=== PATIENT | male | born 1985 | race Caucasian/White ===

== ENCOUNTER 2016-04-01 16:04 | Emergency (ER) | payer MEDICAID, OTHER ==
[~2016-04-01] VITALS: Ht 177.8 cm; Wt 110.6 kg
[~2016-04-01 16:04] MED LIST: CYMB30CA PO; CYMB60CA PO; DEPA500T3 PO; EZET10 PO; FENO1TAB76 PO; FURO20 PO; IBUP800T23 PO; LOPR50TA12 PO; METH500T3 PO; METH750T2 PO; POTA10IN2 PO; TAMS0.4C67 PO
[2016-04-01 16:11] VITALS: BP 140/94; PULSE 92; RESP 16; TEMP 98.8; O2SAT 98
[2016-04-01] MEDS ORDERED: POTA-163 PO (16:33)
[2016-04-01] MEDS ORDERED: SERT-132 PO (16:33)
[2016-04-01] MEDS ORDERED: DOXE25CA2 PO (16:33)
[2016-04-01] MEDS ORDERED: METO50TA11 PO (16:33)
[2016-04-01] MEDS ORDERED: FURO1TAB60 PO (16:33)
[2016-04-01] MEDS ORDERED: TAMS5CAP PO (16:33)
[2016-04-01] MEDS ORDERED: BUPR150CR PO (16:33)
[2016-04-01] MEDS ORDERED: BACT800T5 PO (16:52)
--- NOTE | 2016-04-01 16:54 | PD ---
HPI Chief Complaint: Skin Problem Time Seen by Provider: 16:53 Travel History International Travel<30 days: No Contact w/Intl Traveler<30days: No Traveled to known affect area: No History of Present Illness HPI 31-year-old male presents to the emergency room for evaluation of painful, red bumps on his head that has been intermittently present for the past 3 months. Patient states they come and go throughout his scalp and occasionally drain purulent discharge. When they're present, they're extremely painful. Patient has been applying hydrogen peroxide and Neosporin without relief in symptoms. He has not followed up with anyone about this condition. Denies fever, chills, nausea, and vomiting. PFSH Past Medical History Anxiety: Yes Depression: Yes Cancer: No Cardiovascular Problems: Yes (htn on meds) Chemotherapy: No Diminished Hearing: No Endocrine: No Genitourinary: No Hypertension: Yes Immune Disorder: No Musculoskeletal: No Neurologic: No Psychiatric: Yes (PTSD) Reproductive: No Respiratory: No Immunizations Current: Yes Radiation Therapy: No Past Surgical History Abdominal Surgery: Yes (HERNIA) Pacemaker: No Other Surgery: Yes (RT INGUINAL HERNIA REPAIR) Social History Alcohol Use: Yes (OCC) Tobacco Use: Yes (2 PPD) Substance Use: No Allergies-Medications (Allergen,Severity, Reaction): Coded Allergies: No Known Allergies (Verified , 04/01/16) Reported Meds & Prescriptions Reported Meds & Active Scripts Active Bactrim DS (Sulfamethoxazole-Trimethoprim) 800-160 Mg Tab 1 Tab PO BID Reported Doxepin (Doxepin HCl) 25 Mg Cap 25 Mg PO HS Flomax (Tamsulosin HCl) 0.4 Mg Cap 0.4 Mg PO HS Potassium Chloride ER (Potassium Chloride) 20 Meq Tab 40 Meq PO DAILY Lasix (Furosemide) 40 Mg Tab 40 Mg PO DAILY Sertraline (Sertraline HCl) 50 Mg Tab 50 Mg PO DAILY Wellbutrin SR 12 HR (Bupropion HCl) 150 Mg Tab 150 Mg PO Q12HR Metoprolol Succinate ER 24 HR (Metoprolol Succinate) 50 Mg Tab 50 Mg PO BID Review of Systems Except as stated in HPI: all other systems reviewed are Neg Physical Exam Narrative GENERAL: Well-nourished, well-developed male in no acute distress. Afebrile. Ambulatory. SKIN: Warm and dry. There are 2 indurated areas in the scalp which measure about 0.5 cm in diameter. They are fluctuant with pointing; one is spontaneously draining. No inflammation or lymphangitis. HEAD: Normocephalic. EYES: No scleral icterus. No injection or drainage. NECK: Supple, trachea midline. No JVD or lymphadenopathy. Data Data Last Documented VS Vital Signs Date Time Temp Pulse Resp B/P Pulse Ox O2 Delivery O2 Flow Rate FiO2 04/01/16 16:11 98.8 92 16 140/94 98 Orders Ibuprofen (Motrin) (04/01/16 17:00) [facility] Medical Decision Making Medical Screen Exam Complete: Yes Emergency Medical Condition: Yes Medical Record Reviewed: Yes Differential Diagnosis Folliculitis versus abscess versus carbuncle Narrative Course 31-year-old male presents to the emergency room for evaluation of painful abscesses on his scalp that have been present intermittently for the past 3 months. Abscesses, and go in different locations of the scalp. Denies history of abscess in any other part of his body. Patient has not seen anyone for this. Physical exam reveals 2 0.5 cm abscesses on the top of the scalp. They were poked with an 18-gauge needle and drained. 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 He understands and agrees to this plan. Diagnosis Primary Impression: Folliculitis Referrals: Systems Administrator Patient Instructions: Folliculitis (ED), General Instructions Additional Instructions: Rest and drink plenty of fluids. Take Bactrim as directed, until gone. Follow up with a primary care physician. Return to emergency room for worsening symptoms, as discussed. Med/Other Pt SpecificInfo: Prescription(s) given Scripts Sulfamethoxazole-Trimethoprim (Bactrim DS)800-160 Mg Tab1 Tab PO BID #14 TAB Ref 0 Prov:Toyin Sparrow MD 04/01/16 Disposition: 01 DISCHARGE HOME Condition: Stable Izabella Chand Apr 01, 2016 16:54
[2016-04-01] MEDS ORDERED: IBUPROFEN 600 MG TAB PO ONE (17:00)
== END 2016-04-01 17:08 | disposition home or self-care (01) ==
LOC: PHEFT 16:04
DX: L73.9 Follicular disorder, unspecified (principal); I10 Essential (primary) hypertension
CPT/HCPCS: 99283

== ENCOUNTER 2016-09-04 13:32 | Emergency (ER) | payer MEDICAID, OTHER ==
[~2016-09-04 13:32] MED LIST changes: +BACT800T5 PO; +BUPR150CR PO; -CYMB30CA PO; -CYMB60CA PO; -DEPA500T3 PO; +DOXE25CA2 PO; -EZET10 PO; -FENO1TAB76 PO; +FURO1TAB60 PO; -FURO20 PO; -IBUP800T23 PO; -LOPR50TA12 PO; -METH500T3 PO; -METH750T2 PO; +METO50TA11 PO; +POTA-163 PO; -POTA10IN2 PO; +SERT-132 PO; -TAMS0.4C67 PO; +TAMS5CAP PO
[2016-09-04 13:34] VITALS: BP 140/88; PULSE 98; RESP 20; TEMP 97.7; O2SAT 98
[2016-09-04] MEDS ORDERED: TETANUS/DIPHTHERIA TOXOID ADULT 0.5 ML VIAL IM ONE (14:00)
[2016-09-04] MEDS ORDERED: IBUP800T23 PO (14:06)
--- NOTE | 2016-09-04 14:07 | PD ---
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 Denies paresthesias, loss of sensation, decreased range of motion, decreased strength to the affected finger. Unknown tetanus status. Has applied pressure to control bleeding. Has no other medical complaints. No known allergies. No other modifying factors or associated signs and symptoms. PFSH Past Medical History Anxiety: Yes Depression: Yes Cancer: No Cardiovascular Problems: Yes (htn on meds) Chemotherapy: No Diminished Hearing: No Endocrine: No Genitourinary: No Hypertension: Yes Immune Disorder: No Musculoskeletal: No Neurologic: No Psychiatric: Yes (PTSD) Reproductive: No Respiratory: No Immunizations Current: Yes Radiation Therapy: No Past Surgical History Abdominal Surgery: Yes (HERNIA) Pacemaker: No Other Surgery: Yes (RT INGUINAL HERNIA REPAIR) Social History Alcohol Use: Yes (OCC) Tobacco Use: Yes (/2 PPD) Substance Use: No Allergies-Medications (Allergen,Severity, Reaction): Coded Allergies: No Known Allergies (Verified , 04/01/16) Reported Meds & Prescriptions Reported Meds & Active Scripts Active Ibuprofen 800 Mg Tab 800 Mg PO Q6HR PRN Bactrim DS (Sulfamethoxazole-Trimethoprim) 800-160 Mg Tab 1 Tab PO BID Reported Doxepin (Doxepin HCl) 25 Mg Cap 25 Mg PO HS Flomax (Tamsulosin HCl) 0.4 Mg Cap 0.4 Mg PO HS Potassium Chloride ER (Potassium Chloride) 20 Meq Tab 40 Meq PO DAILY Lasix (Furosemide) 40 Mg Tab 40 Mg PO DAILY Sertraline (Sertraline HCl) 50 Mg Tab 50 Mg PO DAILY Wellbutrin SR 12 HR (Bupropion HCl) 150 Mg Tab 150 Mg PO Q12HR Metoprolol Succinate ER 24 HR (Metoprolol Succinate) 50 Mg Tab 50 Mg PO BID Review of Systems Except as stated in HPI: all other systems reviewed are Neg Physical Exam Narrative GENERAL: Well-nourished, well-developed male patient, in no acute distress SKIN: Warm and dry. Left distal thumb pad with approximately 1.5 cm horseshoe- shaped laceration; bleeding controlled; finger with full range of motion and good opposition; is 3 second cap refill. Left upper extremity supplemented with 2+ radial pulses and sensory intact without erythema or edema. HEAD: Atraumatic. Normocephalic. EYES: Pupils equal and round. No scleral icterus. No injection or drainage. ENT: Mucosa pink and moist. Airway patent. NECK: Trachea midline. CARDIOVASCULAR: Regular rate. RESPIRATORY: No accessory muscle use. GASTROINTESTINAL: Obese. MUSCULOSKELETAL: No obvious deformities. No clubbing. No cyanosis. No edema. NEUROLOGICAL: Awake and alert. Oriented 3. No obvious cranial nerve deficits. Motor grossly within normal limits. Normal speech. PSYCHIATRIC: Appropriate mood and affect; insight and judgment normal. Data Data Last Documented VS Vital Signs Date Time Temp Pulse Resp B/P Pulse Ox O2 Delivery O2 Flow Rate FiO2 09/04/16 13:34 97.7 98 20 140/88 98 Room Air Orders Tetanus/Diphtheria Tox Adult (Tetanus/Di (09/04/16 14:00) MDM Medical Decision Making Medical Screen Exam Complete: Yes Emergency Medical Condition: Yes Medical Record Reviewed: Yes Differential Diagnosis Laceration, skin avulsion, cut Narrative Course 31-year-old male with laceration to his left thumb. See my procedure note for laceration repair. Tetanus updated in the ER. Ibuprofen prescribed for home. Patient verbalizes understanding and agreement with treatment plan. Patient is medically cleared and stable for discharge. Discussed reasons to return to the emergency department. Instructed patient to follow up with primary care provider. Patient agrees with treatment plan. The patients vital signs are stable and the patient is stable for outpatient follow-up and treatment. Patient discharged home, stable and in no acute distress. Procedures Procedure Narrative LACERATION LOCATION: Distal aspect of left thumb pad LENGTH: 1.5 cm; horseshoe-shaped NUMBER OF STITCHES/TOVA: 3 simple interrupted sutures REPAIR: The area of the laceration was prepped with Betadine and sterilely draped. The left thumb was digitally blocked with 1% lidocaine and 0.5% bupivacaine. The wound was copiously irrigated and explored without evidence of foreign body, tendon injury or neurovascular injury. The wound was closed using 4-0 Prolene. This was a single layer repair. A sterile dressing was applied. The patient was advised to keep the dressing clean and dry. Patient tolerated the procedure well. Diagnosis Primary Impression: Laceration of left thumb Qualified Code: S61.012A - Laceration of left thumb without damage to nail, foreign body presence unspecified, initial encounter Referrals: Primary Care Physician Patient Instructions: Care For Your Stitches (ED), Finger Laceration (ED), General Instructions Departure Forms: Tests/Procedures, Work Release Enter return to work date: Sep 07, 2016 Additional Instructions: Keep area clean and dry Limit left thumb activity to decrease risk of sutures coming undone Ibuprofen or Tylenol as directed and as needed for pain and inflammation Ice pack to area as needed to decrease pain Return to the emergency department or follow-up with primary care provider in 7- 10 days for suture removal Follow up with primary care provider Return to the emergency department immediately with worsening of symptoms, particularly if reddened streaks up or down the affected extremity from the suture site, fever, numbness/tingling in the affected extremity, loss of sensation in the affected extremity, severe swelling of the affected Med/Other Pt SpecificInfo: Prescription(s) given Scripts Ibuprofen 800 Mg [id number] Mg PO Q6HR PRN (PAIN) #30 TAB Ref 0 Prov:Teri Anthony 09/04/16 Disposition: 01 DISCHARGE HOME Condition: Stable Teri Anthony Sep 04, 2016 14:07
[2016-09-04 14:26] VITALS: BP 118/76; TEMP 97.8
== END 2016-09-04 14:26 | disposition home or self-care (01) ==
LOC: NEPK 13:32
DX: S61.012A Laceration without foreign body of left thumb without damage to nail, initial encounter (principal); I10 Essential (primary) hypertension; F17.210 Nicotine dependence, cigarettes, uncomplicated; Z23 Encounter for immunization; W26.0XXA Contact with knife, initial encounter; Y93.G3 Activity, cooking and baking; Y92.511 Restaurant or cafe as the place of occurrence of the external cause; Y99.0 Civilian activity done for income or pay
CPT/HCPCS: 12001; 90471; 90714

== ENCOUNTER 2016-09-11 18:18 | Emergency (ER) | payer MEDICAID, OTHER ==
[~2016-09-11] VITALS: Ht 180.3 cm; Wt 104.0 kg
[~2016-09-11 18:18] MED LIST changes: -BACT800T5 PO; -DOXE25CA2 PO; +IBUP800T23 PO
[2016-09-11 18:21] VITALS: BP 151/94; PULSE 106; RESP 16; TEMP 98.6; O2SAT 97
[2016-09-11] MEDS ORDERED: FURO40TA PO (18:41)
[2016-09-11] MEDS ORDERED: SERO400T PO (18:41)
[2016-09-11] MEDS ORDERED: IBUP800T23 PO (18:55)
--- NOTE | 2016-09-11 18:56 | PD ---
HPI Chief Complaint: Musculoskeletal Complaint Time Seen by Provider: 18:44 Travel History International Travel<30 days: No Contact w/Intl Traveler<30days: No Traveled to known affect area: No History of Present Illness HPI 31-year-old male presents emergency department for evaluation of right-sided neck pain 4 years. Patient reports his primary care provider recently stopped prescribing his Percocet 10/325 last week. He will not elaborate on why her physician stopped the medicines. He is requesting referral to a new doctor for management of his neck pain. Patient denies any recent injury. He reports the neck pain is constant, nonradiating, worse with movement and relieved with rest severity 7 out of 10. He reports chronic pain on the side of the neck. PFSH Past Medical History Narrative Medical Significant for chronic pain, PTSD, anxiety, depression, hypertension Anxiety: Yes Depression: Yes Cancer: No Cardiovascular Problems: Yes (htn on meds) Chemotherapy: No Diminished Hearing: No Endocrine: No Genitourinary: No Hypertension: Yes Immune Disorder: No Musculoskeletal: No Neurologic: No Psychiatric: Yes (PTSD) Reproductive: No Respiratory: No Immunizations Current: Yes Radiation Therapy: No Tetanus Vaccination: < 5 Years Influenza Vaccination: No Past Surgical History Abdominal Surgery: Yes (HERNIA) Pacemaker: No Other Surgery: Yes (RT INGUINAL HERNIA REPAIR,) Social History Alcohol Use: No Tobacco Use: No Substance Use: No Allergies-Medications (Allergen,Severity, Reaction): Coded Allergies: No Known Allergies (Verified , 09/04/16) Reported Meds & Prescriptions Reported Meds & Active Scripts Active Reported Furosemide 40 Mg Tab 40 Mg PO DAILY Seroquel (Quetiapine Fumarate) 400 Mg Tab 400 Mg PO HS Flomax (Tamsulosin HCl) 0.4 Mg Cap 0.4 Mg PO HS Potassium Chloride ER (Potassium Chloride) 20 Meq Tab 40 Meq PO DAILY Wellbutrin SR 12 HR (Bupropion HCl) 150 Mg Tab 150 Mg PO Q12HR Metoprolol Succinate ER 24 HR (Metoprolol Succinate) 50 Mg Tab 50 Mg PO BID Review of Systems Except as stated in HPI: all other systems reviewed are Neg Physical Exam Narrative GENERAL: Well-nourished, well-developed patient. SKIN: Focused skin assessment warm/dry. HEAD: Normocephalic. EYES: No scleral icterus. No injection or drainage. NECK: Supple, trachea midline. No JVD or lymphadenopathy. No midline cervical spine tenderness. Tender over the right trapezius muscles. CARDIOVASCULAR: Regular rate and rhythm without murmurs, gallops, or rubs. RESPIRATORY: Breath sounds equal bilaterally. No accessory muscle use. GASTROINTESTINAL: Abdomen soft, non-tender, nondistended. MUSCULOSKELETAL: No cyanosis, or edema. NEUROLOGICAL: 5 out of 5 strength in upper and lower extremities. Normal sensation in upper extremities with 2 points conation. Equal hand grasp bilaterally. BACK: Nontender without obvious deformity. No CVA tenderness. Data Data Last Documented VS Vital Signs Date Time Temp Pulse Resp B/P Pulse Ox O2 Delivery O2 Flow Rate FiO2 09/11/16 18:21 98.6 106 16 151/94 97 Room Air MDM Medical Decision Making Medical Screen Exam Complete: Yes Emergency Medical Condition: Yes Differential Diagnosis Chronic neck pain, cervical strain Narrative Course 31-year-old male presents emergency department for evaluation of chronic right- sided neck pain 4 years. Apparently his primary care provider recently stopped prescribing his oxycodone and his neck pain has worsened since that time. He denies any recent trauma to the neck. The pain is similar to his chronic pain. He denies any numbness/tingling/weakness of the upper extremities. On exam he has no midline pain tenderness however he has some right-sided trapezius muscle spasming. Patient will be treated with NSAIDs and instructed to follow up with spinal specialist. Diagnosis Primary Impression: Chronic neck pain Referrals: Orthopedist Scripts Ibuprofen 800 Mg [id number] Mg PO Q8H PRN (Pain/Inflammation) #30 TAB Prov:Paulina Garcia 09/11/16 Disposition: 01 DISCHARGE HOME Condition: Stable Paulina Garcia Sep 11, 2016 18:56
== END 2016-09-11 19:07 | disposition home or self-care (01) ==
LOC: PHEFT 18:18
DX: G89.29 Other chronic pain (principal); M54.2 Cervicalgia; I10 Essential (primary) hypertension
CPT/HCPCS: 99283

== ENCOUNTER 2016-09-26 21:02 | Emergency (ER) | payer OTHER ==
[~2016-09-26] VITALS: Ht 177.8 cm; Wt 105.0 kg
[~2016-09-26 21:02] MED LIST changes: -FURO1TAB60 PO; +FURO40TA PO; +SERO400T PO; -SERT-132 PO
[2016-09-26 21:07] VITALS: BP 133/93; PULSE 100; RESP 18; TEMP 98.7; O2SAT 97
[2016-09-26 22:30] VITALS: BP 178/89; PULSE 88; RESP 16
[2016-09-26] MEDS ORDERED: SODIUM CHLOR 0.9% 1000 ML INJ 1,000 ML IV ONE (23:26)
[2016-09-26] MEDS ORDERED: ONDANSETRON HCL 4 MG/2 ML VIAL IVP ONE (23:30)
[2016-09-26] MEDS ORDERED: SODIUM CHLORIDE 0.9% FLUSH 10 ML FLUSH IVF PRN (23:30)
[2016-09-27 00:12] LABS: BLOOD, URINE NEG (NEG); GLUCOSE,URINE NEG (NEG); KETONE, URINE NEG (NEG); NITRITE,URINE NEG (NEG); PH, URINE 7.5 (5.0-8.5)
[2016-09-27 00:18] LABS: URINE COLOR YELLOW (YELLW/STRAW)
[2016-09-27 00:19] LABS: MUCUS URINE MOD /lpf (OCC); SQUAMOUS EPITHELIAL CELL URINE 0-5 /hpf (0-5)
[2016-09-27 00:19] LABS: AUTOMATED NEUTROPHIL # 4.7 TH/MM3 (1.8-7.7); BASOPHIL % 0.6 % (0.0-2.0); EOSINOPHIL # 0.1 TH/MM3 (0-0.4); EOSINOPHIL % 1.3 % (0.0-4.0); LYMPH % 11.2 % (9.0-44.0); LYMPHOCYTE # 0.6 TH/MM3 (1.0-4.8); MEAN CELL VOLUME 82.8 FL (80.0-100.0); MEAN CORPUSCULAR HEMOGLOBIN 28.3 PG (27.0-34.0); MEAN CORPUSCULAR HGB CONC 34.2 % (32.0-36.0); MONO % 4.6 % (0.0-8.0); NEUT % 82.3 % (16.0-70.0); PLATELET COUNT 209 TH/MM3 (150-450); RED BLOOD COUNT 5.07 MIL/MM3 (4.50-5.90); RED CELL DISTRIBUTION WIDTH 11.9 % (11.6-17.2); WHITE BLOOD COUNT 5.7 TH/MM3 (4.0-11.0)
[2016-09-27 00:21] LABS: COMMENT (UR) CULT NOT INDICATED; CULTURE IF INDICATED CULT NOT INDICATED; WBC, URINE 0-2 /hpf (0-5)
[2016-09-27 00:27] LABS: CHLORIDE 105 MEQ/L (98-107); HEMO FLAGS DIFF FINAL; POTASSIUM 3.5 MEQ/L (3.5-5.1); SODIUM (NA) 142 MEQ/L (136-145)
[2016-09-27 00:31] LABS: ANION GAP 10 MEQ/L (5-15); BICARBONATE 26.8 MEQ/L (21.0-32.0); BLOOD UREA NITROGEN 18 MG/DL (7-18)
[2016-09-27 00:34] LABS: ALT (GPT) 31 U/L (12-78); AST (GOT) 23 U/L (15-37); GLOMERULAR FILTRATION RATE 78 ML/MIN (>89)
[2016-09-27 00:35] LABS: TOTAL BILIRUBIN ADULT 0.6 MG/DL (0.2-1.0)
[2016-09-27 00:36] LABS: ALKALINE PHOSPHATASE 49 U/L (45-117)
[2016-09-27] MEDS ORDERED: KETOROLAC TROMETHAMINE 30 MG/ML (IVP) VIAL IV PUSH ONE (00:45)
[2016-09-27 00:59] VITALS: BP 134/68; PULSE 78; RESP 16; O2SAT 99
[2016-09-27] MEDS ORDERED: ZOFR4TAB3 SL (01:17)
--- NOTE | 2016-09-27 01:20 | PD ---
HPI Chief Complaint: GI Complaint Time Seen by Provider: 23:26 Travel History International Travel<30 days: No Contact w/Intl Traveler<30days: No Traveled to known affect area: No History of Present Illness HPI 31-year-old male presents to the emergency department for not feeling well stating that he has nausea and has had vomiting no diarrhea also complains of headache. Patient states no known exposure to coworkers or family members with similar symptoms. Patient has had no fever or chills. Patient has had nausea and vomiting without bilious emesis coffee-ground emesis or hematemesis. Patient denies any sore throat or earache. Patient has had sinus pressure and some sinus drainage. Patient denies chest pain or shortness of breath. Abdomen diffusely mildly tender. Patient states associated primarily with episodes of nausea or vomiting. No decreased appetite. Patient has had normal urine output. Past history remarkable for anxiety depression, PTSD, HTN, herniorrhaphy without tobacco use or alcohol use. Patient rates pain 7/10 in intensity. Headache is not sudden onset thunderclap or worst ever. Patient denies any visual disturbance photophobia phonophobia or new upper extremity or lower extremity numbness tingling or weakness. Denies family history of headache. PFSH Past Medical History Narrative Medical anxiety depression, PTSD, HTN, herniorrhaphy no tobacco use or alcohol use; nursing notes reviewed Anxiety: Yes Depression: Yes Cancer: No Cardiovascular Problems: Yes (htn on meds) Chemotherapy: No Cerebrovascular Accident: Yes Diminished Hearing: No Endocrine: No Gastrointestinal Disorders: No Genitourinary: No Hypertension: Yes Immune Disorder: No Implanted Vascular Access Dvce: No Musculoskeletal: No Neurologic: No Psychiatric: Yes (PTSD) Reproductive: No Respiratory: No Immunizations Current: Yes Radiation Therapy: No ?: Not Past Surgical History Abdominal Surgery: Yes (HERNIA) Pacemaker: No Other Surgery: Yes (RT INGUINAL HERNIA REPAIR,) Social History Alcohol Use: No Tobacco Use: No Substance Use: No Allergies-Medications (Allergen,Severity, Reaction): Coded Allergies: No Known Allergies (Verified , 09/04/16) Reported Meds & Prescriptions Reported Meds & Active Scripts Active Zofran Odt (Ondansetron Odt) 4 Mg Tab 4 Mg SL Q6HR PRN Ibuprofen 800 Mg Tab 800 Mg PO Q8H PRN Reported Furosemide 40 Mg Tab 40 Mg PO DAILY Seroquel (Quetiapine Fumarate) 400 Mg Tab 400 Mg PO HS Flomax (Tamsulosin HCl) 0.4 Mg Cap 0.4 Mg PO HS Potassium Chloride ER (Potassium Chloride) 20 Meq Tab 40 Meq PO DAILY Wellbutrin SR 12 HR (Bupropion HCl) 150 Mg Tab 150 Mg PO Q12HR Metoprolol Succinate ER 24 HR (Metoprolol Succinate) 50 Mg Tab 50 Mg PO BID Review of Systems Except as stated in HPI: all other systems reviewed are Neg Physical Exam Narrative GENERAL: Well-developed well-nourished male in no acute distress no respiratory distress SKIN: Warm and dry. HEAD: Normocephalic. EYES: No scleral icterus. No injection or drainage. ENT: Mucous members moist airway is patent sinuses nontender to percussion tympanic membranes no redness or dullness or loss of landmarks NECK: Supple, trachea midline. No JVD or lymphadenopathy. No meningismus no nuchal rigidity CARDIOVASCULAR: Regular rate and rhythm without murmurs, gallops, or rubs. RESPIRATORY: Breath sounds equal bilaterally. No accessory muscle use. GASTROINTESTINAL: Abdomen soft, non-tender, no guarding no rebound, nondistended. MUSCULOSKELETAL: No cyanosis, or edema. BACK: Nontender without obvious deformity. No CVA tenderness. Data Data Last Documented VS Vital Signs Date Time Temp Pulse Resp B/P Pulse Ox O2 Delivery O2 Flow Rate FiO2 09/27/16 01:48 77 16 142/78 99 09/27/16 00:59 Room Air 09/26/16 21:07 98.7 Orders Complete Blood Count With Diff (09/26/16 23:26) Comprehensive Metabolic Panel (09/26/16 23:26) Urinalysis - C+S If Indicated (09/26/16 23:26) Lipase (09/26/16 23:26) Iv Access Insert/Monitor (09/26/16 23:26) Ecg Monitoring (09/26/16 23:26) Oximetry (09/26/16 23:26) Ondansetron Inj (Zofran Inj) (09/26/16 23:30) Sodium Chlor 0.9% 1000 Ml Inj (Ns 1000 M (09/26/16 23:26) Sodium Chloride 0.9% Flush (Ns Flush) (09/26/16 23:30) Ketorolac Inj (Toradol Inj) (09/27/16 00:45) Labs Laboratory Tests Test 09/26/16 09/26/16 23:35 23:45 Urine Color YELLOW Urine Turbidity CLEAR Urine pH 7.5 Urine Specific Eads 1.030 Urine Protein 30 mg/dL Urine Glucose (UA) NEG mg/dL Urine Ketones NEG mg/dL Urine Occult Blood NEG Urine Nitrite NEG Urine Bilirubin NEG Urine Leukocyte Esterase NEG Urine WBC 0-2 /hpf Urine Squamous Epithelial 0-5 /hpf Cells Urine Mucus MOD /lpf Microscopic Urinalysis Comment CULT NOT INDICATED White Blood Count 5.7 TH/MM3 Red Blood Count 5.07 MIL/MM3 Hemoglobin 14.4 GM/DL Hematocrit 42.0 % Mean Corpuscular Volume 82.8 FL Mean Corpuscular Hemoglobin 28.3 PG Mean Corpuscular Hemoglobin 34.2 % Concent Red Cell Distribution Width 11.9 % Platelet Count 209 TH/MM3 Mean Platelet Volume 8.6 FL Neutrophils (%) (Auto) 82.3 % Lymphocytes (%) (Auto) 11.2 % Monocytes (%) (Auto) 4.6 % Eosinophils (%) (Auto) 1.3 % Basophils (%) (Auto) 0.6 % Neutrophils # (Auto) 4.7 TH/MM3 Lymphocytes # (Auto) 0.6 TH/MM3 Monocytes # (Auto) 0.3 TH/MM3 Eosinophils # (Auto) 0.1 TH/MM3 Basophils # (Auto) 0.0 TH/MM3 CBC Comment DIFF FINAL Differential Comment Sodium Level 142 MEQ/L Potassium Level 3.5 MEQ/L Chloride Level 105 MEQ/L Carbon Dioxide Level 26.8 MEQ/L Anion Gap 10 MEQ/L Blood Urea Nitrogen 18 MG/DL Creatinine 1.10 MG/DL Estimat Glomerular Filtration 78 ML/MIN Rate Random Glucose 90 MG/DL Calcium Level 8.6 MG/DL Total Bilirubin 0.6 MG/DL Aspartate Amino Transf 23 U/L (AST/SGOT) Alanine Aminotransferase 31 U/L (ALT/SGPT) Alkaline Phosphatase 49 U/L Total Protein 7.8 GM/DL Albumin 4.1 GM/DL Lipase 120 U/L MDM Medical Decision Making Medical Screen Exam Complete: Yes Emergency Medical Condition: Yes Medical Record Reviewed: Yes Interpretation(s) CBC & BMP Diagram 09/26/16 23:45 Vital Signs Date Time Temp Pulse Resp B/P Pulse Ox O2 Delivery O2 Flow Rate FiO2 09/27/16 00:59 78 16 134/68 99 Room Air 09/26/16 22:30 88 16 178/89 09/26/16 21:07 98.7 100 18 133/93 97 Differential Diagnosis Viral syndrome, gastroenteritis, food borne illness, recurrent cephalgia, tension headache, Narrative Course Patient presents with complaint of GI upset nausea vomiting sinus pressure drainage and headache. Patient has history of chronic recurrent headache. Patient also has history of hypertension and posttraumatic stress disorder and myofascial pain. Patient denies eating any altered bad food but state hasn't felt well today denies any fever or chills. No hematemesis or coffee-ground emesis and at work today started feeling poorly so decided to come to the emergency room for further evaluation. Patient has no abdominal pain at this time but has had some intermittent crampy abdominal discomfort. At this point time patient symptoms seemed consistent with probable viral syndrome versus gastroenteritis versus dehydration with tension-type headache versus sinus type headache. Headache is not described as sudden onset thunderclap or worst ever. Patient's had no febrile illness. This point time patient be given IV fluid bolus and Zofran for nausea and Toradol for pain; specimens are collected and sent for resulting. It is 1 AM and patient is clinically improved plan will be to discharge for outpatient management and follow-up with primary care provider will be provided a prescription for antibiotic and given a work excuse for no work times one day encouraged to follow clear liquid diet which he is to advance to regular diet as tolerated Diagnosis Primary Impression: Viral syndrome Additional Impression: Recurrent headache Referrals: Primary Care Physician call for appointment Patient Instructions: General Instructions Departure Forms: Tests/Procedures, Work Release Special Instructions: no work x 1 day Additional Instructions: Follow clear liquid diet for next 12-24 hours advance as tolerated to bland/ Kimmie diet then regular diet Increase fluid hydration Take acetaminophen/Tylenol every 4 hours as needed for fever 100.4F or greater Take 800 mg of ibuprofen as often as every 8 hours for pain associated with inflammation or for fever 100.4F or greater Take Zofran as prescribed as needed for nausea and/or vomiting No work times one day Return to the emergency department for any concerns or change in condition Med/Other Pt SpecificInfo: Prescription(s) given Scripts Ondansetron Odt (Zofran Odt)4 Mg Tab4 Mg SL Q6HR PRN (Nausea/Vomiting) #10 TAB Ref 0 Prov:Philomena Lay MD 09/27/16 Disposition: 01 DISCHARGE HOME Condition: Stable Philomena Lay MD Sep 27, 2016 01:20
[2016-09-27 01:48] VITALS: BP 142/78
== END 2016-09-27 01:51 | disposition home or self-care (01) ==
LOC: PHED 21:02
DX: B34.9 Viral infection, unspecified (principal); R51 Headache; R11.2 Nausea with vomiting, unspecified; R10.84 Generalized abdominal pain; R53.81 Other malaise; I10 Essential (primary) hypertension; Z86.59 Personal history of other mental and behavioral disorders; Z86.79 Personal history of other diseases of the circulatory system
CPT/HCPCS: 80053; 81001; 83690; 85025; 96361; 96374; 96375; 99284; J1885; J2405; J7030

== ENCOUNTER 2016-10-21 08:23 | Emergency (ER) | payer OTHER ==
[~2016-10-21] VITALS: Ht 177.8 cm; Wt 104.0 kg
[~2016-10-21 08:23] MED LIST changes: +ZOFR4TAB3 SL
[2016-10-21 08:36] VITALS: BP 132/94; PULSE 100; RESP 16; TEMP 98.3; O2SAT 98
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
[2016-10-21] MEDS ORDERED: MORPHINE SULFATE 4 MG/ML INJ IV PUSH ONE (09:00)
[2016-10-21] MEDS ORDERED: LIDOCAINE HCL 1% 50 ML VIAL INFIL ONE (09:00)
[2016-10-21 09:18] LABS: AUTOMATED NEUTROPHIL # 2.7 TH/MM3 (1.8-7.7); BASOPHIL % 1.1 % (0.0-2.0); EOSINOPHIL # 0.1 TH/MM3 (0-0.4); EOSINOPHIL % 2.1 % (0.0-4.0); HEMATOCRIT 41.5 % (39.0-51.0); HEMO FLAGS DIFF FINAL; LYMPH % 32.4 % (9.0-44.0); LYMPHOCYTE # 1.5 TH/MM3 (1.0-4.8); MEAN CELL VOLUME 82.9 FL (80.0-100.0); MEAN CORPUSCULAR HEMOGLOBIN 28.1 PG (27.0-34.0); MEAN CORPUSCULAR HGB CONC 33.9 % (32.0-36.0); MONO % 5.3 % (0.0-8.0); NEUT % 59.1 % (16.0-70.0); PLATELET COUNT 201 TH/MM3 (150-450); RED CELL DISTRIBUTION WIDTH 11.9 % (11.6-17.2); WHITE BLOOD COUNT 4.5 TH/MM3 (4.0-11.0)
[2016-10-21] MEDS ORDERED: ONDANSETRON HCL 4 MG/2 ML VIAL IV PUSH ONE (09:45)
[2016-10-21 09:49] VITALS: BP 125/70; PULSE 81; RESP 16; O2SAT 100
[2016-10-21] MEDS ORDERED: IOHEXOL 350 MG/ML 10 ML VIAL (for RAD DIAG) IV ONE (09:50)
[2016-10-21 09:54] LABS: POTASSIUM 3.8 MEQ/L (3.5-5.1)
[2016-10-21 10:16] LABS: BICARBONATE 26.8 MEQ/L (21.0-32.0)
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
[2016-10-21] MEDS ORDERED: CEPH-460 PO (11:09)
[2016-10-21] MEDS ORDERED: ACET-898 PO (11:09)
== END 2016-10-21 11:21 | disposition home or self-care (01) ==
LOC: PHED 08:23
DX: S31.113A Laceration without foreign body of abdominal wall, right lower quadrant without penetration into peritoneal cavity, initial encounter (principal); W26.0XXA Contact with knife, initial encounter; Y93.G1 Activity, food preparation and clean up
CPT/HCPCS: 12001; 74177; 80048; 85025; 96374; 96375; 99285; J2270; J2405; Q9967

== ENCOUNTER 2016-10-25 21:47 | Emergency (ER) | payer OTHER ==
[~2016-10-25] VITALS: Ht 177.8 cm; Wt 106.0 kg
[~2016-10-25 21:47] MED LIST changes: +ACET-898 PO; +CEPH-460 PO; -ZOFR4TAB3 SL
[2016-10-25 21:53] VITALS: BP 153/87; PULSE 78; RESP 12; TEMP 97.9; O2SAT 96
[2016-10-26] MEDS ORDERED: SODIUM CHLOR 0.9% 1000 ML INJ 1,000 ML IV SCH (00:28)
[2016-10-26] MEDS ORDERED: SODIUM CHLORIDE 0.9% FLUSH 10 ML FLUSH IV FLUSH PRN (00:30)
[2016-10-26] MEDS ORDERED: KETOROLAC TROMETHAMINE 30 MG/ML (IVP) VIAL IVP ONE (00:30)
[2016-10-26 00:40] VITALS: BP 151/94; PULSE 71; RESP 16; RESP 18; O2SAT 98
[2016-10-26 01:16] LABS: AUTOMATED NEUTROPHIL # 2.6 TH/MM3 (1.8-7.7); BASOPHIL % 0.4 % (0.0-2.0); EOSINOPHIL # 0.1 TH/MM3 (0-0.4); EOSINOPHIL % 1.6 % (0.0-4.0); HEMATOCRIT 38.9 % (39.0-51.0); HEMO FLAGS DIFF FINAL; LYMPH % 41.3 % (9.0-44.0); LYMPHOCYTE # 2.3 TH/MM3 (1.0-4.8); MEAN CELL VOLUME 83.6 FL (80.0-100.0); MEAN CORPUSCULAR HEMOGLOBIN 28.2 PG (27.0-34.0); MEAN CORPUSCULAR HGB CONC 33.7 % (32.0-36.0); MONO % 8.5 % (0.0-8.0); NEUT % 48.2 % (16.0-70.0); PLATELET COUNT 208 TH/MM3 (150-450); RED BLOOD COUNT 4.65 MIL/MM3 (4.50-5.90); RED CELL DISTRIBUTION WIDTH 12.9 % (11.6-17.2); WHITE BLOOD COUNT 5.5 TH/MM3 (4.0-11.0)
[2016-10-26 01:24] LABS: CHLORIDE 105 MEQ/L (98-107); POTASSIUM 3.6 MEQ/L (3.5-5.1); SODIUM (NA) 141 MEQ/L (136-145)
[2016-10-26 01:28] LABS: ANION GAP 7 MEQ/L (5-15); BICARBONATE 28.7 MEQ/L (21.0-32.0); BLOOD UREA NITROGEN 18 MG/DL (7-18)
[2016-10-26 01:29] LABS: APTT (PATIENT) 28.1 SEC (24.3-30.1); INTERNATIONAL NORMALIZED RATIO 0.9 RATIO; PROTHROMBIN TIME - PATIENT 10.3 SEC (9.8-11.6)
[2016-10-26 01:31] LABS: ALT (GPT) 25 U/L (12-78); AST (GOT) 14 U/L (15-37); GLOMERULAR FILTRATION RATE 103 ML/MIN (>89)
[2016-10-26 01:32] LABS: TOTAL BILIRUBIN ADULT 0.5 MG/DL (0.2-1.0)
[2016-10-26 01:34] LABS: ALKALINE PHOSPHATASE 51 U/L (45-117)
[2016-10-26 01:50] VITALS: BP 128/81; PULSE 80; RESP 14; O2SAT 96
[2016-10-26] MEDS ORDERED: IOHEXOL 350 MG/ML 10 ML VIAL (for RAD DIAG) IV ONE (02:11)
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
[2016-10-26 03:05] VITALS: BP 138/85; PULSE 64; RESP 14; O2SAT 98
== END 2016-10-26 03:30 | disposition home or self-care (01) ==
LOC: PHED 21:47
DX: S31.119D Laceration without foreign body of abdominal wall, unspecified quadrant without penetration into peritoneal cavity, subsequent encounter (principal); I10 Essential (primary) hypertension; Z86.59 Personal history of other mental and behavioral disorders; Z86.79 Personal history of other diseases of the circulatory system; W45.8XXD Other foreign body or object entering through skin, subsequent encounter
CPT/HCPCS: 74177; 80053; 83605; 85025; 85610; 85730; 96361; 96374; J1885; J7030; Q9967

== ENCOUNTER 2016-11-02 17:14 | Emergency (ER) | payer OTHER ==
[~2016-11-02] VITALS: Ht 177.8 cm; Wt 104.6 kg
[2016-11-02 17:33] VITALS: BP 144/90; PULSE 76; RESP 16; TEMP 98.5; O2SAT 98
--- NOTE | 2016-11-02 17:55 | PD ---
HPI Chief Complaint: Fall Time Seen by Provider: 17:35 Travel History International Travel<30 days: No Contact w/Intl Traveler<30days: No Traveled to known affect area: No History of Present Illness HPI 31-year-old male presents to the emergency room for evaluation of pain after slipping and falling in the shower 10 hours prior to arrival. Patient states he fell backwards and slid down the shower wall before lying down in the tub. He reports pain localized to C7 with radiation into his shoulders. He went to work today and was sent home early because he had pain with his work activities such as bending and lifting. He took ibuprofen at work but has not taken anything else. He denies loss of consciousness, headache, upper or lower extremity paresthesias, saddle anesthesia, loss of bowel or bladder control, difficulty ambulating, upper or lower extremity pain, hip pain, back pain. He is not on blood thinners. PFSH Past Medical History Anxiety: Yes Depression: Yes Cancer: No Cardiovascular Problems: Yes (htn on meds) High Cholesterol: Yes Chemotherapy: No Cerebrovascular Accident: Yes Diminished Hearing: No Endocrine: No Gastrointestinal Disorders: No Genitourinary: No Hypertension: Yes Immune Disorder: No Implanted Vascular Access Dvce: No Musculoskeletal: No Neurologic: No Psychiatric: Yes (ptsd) Reproductive: No Respiratory: No Immunizations Current: Yes Radiation Therapy: No Past Surgical History Abdominal Surgery: Yes (HERNIA) Pacemaker: No Other Surgery: Yes (RT INGUINAL HERNIA REPAIR,) Social History Alcohol Use: Yes (SOCIAL) Tobacco Use: No (QUIT 2006) Substance Use: No Allergies-Medications (Allergen,Severity, Reaction): Coded Allergies: No Known Allergies (Verified , 11/02/16) Reported Meds & Prescriptions Reported Meds & Active Scripts Active Reported Furosemide 40 Mg Tab 40 Mg PO DAILY Seroquel (Quetiapine Fumarate) 400 Mg Tab 400 Mg PO HS Flomax (Tamsulosin HCl) 0.4 Mg Cap 0.4 Mg PO HS Potassium Chloride ER (Potassium Chloride) 20 Meq Tab 40 Meq PO DAILY Wellbutrin SR 12 HR (Bupropion HCl) 150 Mg Tab 150 Mg PO Q12HR Metoprolol Succinate ER 24 HR (Metoprolol Succinate) 50 Mg Tab 50 Mg PO BID Review of Systems Except as stated in HPI: all other systems reviewed are Neg Physical Exam Narrative GENERAL: Well-nourished, well-developed male in no acute distress. Afebrile. Ambulatory. SKIN: Focused skin assessment warm/dry. HEAD: Normocephalic. EYES: No scleral icterus. No injection or drainage. NECK: Supple, trachea midline. No JVD or lymphadenopathy. Full range of motion. Limited tenderness to palpation of C6. CARDIOVASCULAR: Regular rate and rhythm without murmurs, gallops, or rubs. RESPIRATORY: Breath sounds equal bilaterally. No accessory muscle use. BACK: Nontender without obvious deformity. No CVA tenderness. Strength 5/5 and equal in upper and lower extremities. Radial, ulnar, and median nerves intact bilaterally. NEUROLOGICAL: Awake and alert. Cranial nerves II through XII intact. Motor and sensory grossly within normal limits. Five out of 5 muscle strength in all muscle groups. Normal speech. Data Data Last Documented VS Vital Signs Date Time Temp Pulse Resp B/P Pulse Ox O2 Delivery O2 Flow Rate FiO2 11/02/16 17:33 98.5 76 16 144/90 98 Orders Spine, Cervical - Ltd (Ap&Lat) (11/02/16 ) [facility] Medical Decision Making Medical Screen Exam Complete: Yes Emergency Medical Condition: Yes Medical Record Reviewed: Yes Differential Diagnosis Cervical strain, muscle spasm, chronic neck pain Narrative Course 31-year-old male presents to the emergency room for evaluation of neck pain after falling in the shower 10 hours prior to arrival. Patient hit the back of his head but denies loss of consciousness. He is not on blood thinners. No focal neurological deficits. Sawyer CT rule excludes need for imaging at this time. There is mild tenderness to palpation over C6. Full range of motion of the neck. X-ray of the neck is negative for acute abnormality. Patient discharged with prescription for ibuprofen and told to follow up with a primary care physician or return for worsening symptoms. He understands and agrees to plan. Diagnosis Primary Impression: Cervical strain Qualified Code: S16.1XXA - Strain of neck muscle, initial encounter Referrals: Primary Care Physician Patient Instructions: Cervical Strain (ED), General Instructions Additional Instructions: Rest and drink plenty of fluids. Take ibuprofen with food as directed, as needed for pain. Apply ice to the affected area for 20 minutes at a time, as needed for pain and swelling. Follow-up with a primary care physician. Return to the emergency room for worsening symptoms. Med/Other Pt SpecificInfo: Prescription(s) given Disposition: 01 DISCHARGE HOME Condition: Stable Izabella Chand Nov 02, 2016 17:54 Izabella Chand Nov 02, 2016 17:54
--- NOTE | 2016-11-02 18:58 | RADRPT ---
EXAM DATE/TIME: 11/02/2016 17:56 [facility] COMPARISON: No previous studies available for comparison. INDICATIONS : Neck pain post fall in shower this morning. MEDICAL HISTORY : None. SURGICAL HISTORY : None. ENCOUNTER: Initial ACUITY: 1 day PAIN SCORE: 8/10 LOCATION: Bilateral cervical spine. FINDINGS: Two projection examination was performed. There is normal alignment and curvature of the vertebral b odies down to the level of C7. No evidence of fracture or subluxation. Vertebral body height is manjinder ntained. The disc spaces are maintained. The prevertebral soft tissues are of normal thickness. Th e atlanto-axial articulation is intact. CONCLUSION: Unremarkable limited examination of the cervical spine. Joey Sanchez MD on November 02, 2016 at 18:55 Board Certified Radiologist. This report was verified electronically.
== END 2016-11-02 20:35 | disposition home or self-care (01) ==
LOC: PHEFT 17:14
DX: S16.1XXA Strain of muscle, fascia and tendon at neck level, initial encounter (principal); I10 Essential (primary) hypertension; E78.00 Pure hypercholesterolemia, unspecified; Z86.73 Personal history of transient ischemic attack (TIA), and cerebral infarction without residual deficits; Z87.891 Personal history of nicotine dependence; W18.2XXA Fall in (into) shower or empty bathtub, initial encounter; Y93.E1 Activity, personal bathing and showering; Y92.091 Bathroom in other non-institutional residence as the place of occurrence of the external cause; Y99.8 Other external cause status
CPT/HCPCS: 72040; 99283

== ENCOUNTER 2016-11-25 11:50 | Emergency (ER) | payer OTHER ==
[~2016-11-25] VITALS: Ht 175.3 cm; Wt 85.0 kg
[~2016-11-25 11:50] MED LIST changes: -ACET-898 PO; -CEPH-460 PO; -IBUP800T23 PO
[2016-11-25 11:52] VITALS: BP 175/100; PULSE 88; RESP 20; TEMP 98.8; O2SAT 98
--- NOTE | 2016-11-25 12:11 | PD ---
Physical Exam Time Seen by Provider: 12:09 Narrative 31yo M c/o sore throat since yesterday. +nasal congestion, left ear pain. Unknown fever. Denies cough. Patient seen in triage. VS reviewed. Awaiting be placement. Data Data Last Documented VS Vital Signs Date Time Temp Pulse Resp B/P (MAP) Pulse Ox O2 Delivery O2 Flow Rate FiO2 11/25/16 11:52 98.8 88 20 175/100 (125) 98 Room Air MDM Supervised Visit with JAMMIE: Teri Tran Nov 25, 2016 12:11
--- NOTE | 2016-11-25 13:01 | PD ---
HPI Chief Complaint: ENT Complaint Time Seen by Provider: 12:59 Travel History International Travel<30 days: No Contact w/Intl Traveler<30days: No Traveled to known affect area: No History of Present Illness HPI 31-year-old male presents to our with upper respiratory symptoms including headache, sore throat, and left ear pain. Patient States it started 6 -7 days ago. He has a nonproductive cough. He denies heartburn, nausea, vomiting, or diarrhea. His no known drug allergies. Rapid strep is sent in triage. PFS Past Medical History Anxiety: Yes Depression: Yes Cancer: No Cardiovascular Problems: Yes (htn on meds) High Cholesterol: Yes Chemotherapy: No Cerebrovascular Accident: Yes Diminished Hearing: No Endocrine: No Gastrointestinal Disorders: No Genitourinary: No Hypertension: Yes Immune Disorder: No Implanted Vascular Access Dvce: No Musculoskeletal: No Neurologic: No Psychiatric: Yes (ptsd) Reproductive: No Respiratory: No Immunizations Current: Yes Radiation Therapy: No Past Surgical History Abdominal Surgery: Yes (HERNIA) Pacemaker: No Other Surgery: Yes (RT INGUINAL HERNIA REPAIR,) Social History Alcohol Use: Yes (SOCIAL) Tobacco Use: No (QUIT 2006) Substance Use: No Allergies-Medications (Allergen,Severity, Reaction): Coded Allergies: No Known Allergies (Verified , 11/02/16) Reported Meds & Prescriptions Reported Meds & Active Scripts Active Flonase Nasal Ruby (Fluticasone Nasal Ruby) 50 Mcg/Act Ruby 100 Mcg EACH NARE BID Amoxicillin 875 Mg Tab 875 Mg PO BID 10 Days Reported Furosemide 40 Mg Tab 40 Mg PO DAILY Seroquel (Quetiapine Fumarate) 400 Mg Tab 400 Mg PO HS Flomax (Tamsulosin HCl) 0.4 Mg Cap 0.4 Mg PO HS Potassium Chloride ER (Potassium Chloride) 20 Meq Tab 40 Meq PO DAILY Wellbutrin SR 12 HR (Bupropion HCl) 150 Mg Tab 150 Mg PO Q12HR Metoprolol Succinate ER 24 HR (Metoprolol Succinate) 50 Mg Tab 50 Mg PO BID Review of Systems Except as stated in HPI: all other systems reviewed are Neg General / Constitutional: No: Fever, Chills Eyes: No: Visual changes HENT: Positive: Headaches, Sore Throat, Rhinitis, Rhinorrhea, Congestion, Earache, Other (green postnasal drip), No: Vertigo, Lightheadedness, Nosebleed, Neck Stiffness, Neck Pain, Gingival Bleeding, Dental Difficulties, Ear Discharge Cardiovascular: No: Chest Pain or Discomfort Respiratory: Positive: Cough, No: Shortness of Breath, Wheezing Gastrointestinal: No: Abdominal Pain Genitourinary: No: Dysuria Musculoskeletal: No: Pain Skin: No Rash Neurologic: No: Weakness Psychiatric: No: Depression Endocrine: No: Polydipsia Hematologic/Lymphatic: No: Easy Bruising Physical Exam Narrative GENERAL: Patient appears mildly ill but not septic. SKIN: Warm and dry. Normal color. Normal turgor. HEAD: Atraumatic. Normocephalic. Positive sinus tenderness to both frontal and maxillary sinuses. EYES: Pupils equal and round. No scleral icterus. No injection or drainage. ENT: No nasal bleeding or discharge. Mucous membranes pink and moist. TMs are somewhat dull bilaterally but no injection. Posterior pharynx has generalized mild erythema and cobblestoning with postnasal drip noted. Uvula is midline. No tonsillar swelling is noted. NECK: Trachea midline. Supple nontender without significant lymphadenopathy. CARDIOVASCULAR: Regular rate and rhythm. RESPIRATORY: No accessory muscle use. Clear to auscultation. Breath sounds equal bilaterally. MUSCULOSKELETAL: Extremities without clubbing, cyanosis, or edema. No obvious deformities. NEUROLOGICAL: Awake and alert. No obvious cranial nerve deficits. Motor grossly within normal limits. Five out of 5 muscle strength in the arms and legs. Normal speech. PSYCHIATRIC: Appropriate mood and affect; insight and judgment normal. Data Data Last Documented VS Vital Signs Date Time Temp Pulse Resp B/P (MAP) Pulse Ox O2 Delivery O2 Flow Rate FiO2 11/25/16 11:52 98.8 88 20 175/100 (125) 98 Room Air Orders Orders Group A Rapid Strep Screen (11/25/16 12:11) Strep Culture (Group A) (11/25/16 12:10) [facility] Medical Decision Making Medical Screen Exam Complete: Yes Emergency Medical Condition: Yes Differential Diagnosis Upper respiratory infection. Sinusitis. Postnasal drip. Pharyngitis. Tonsillar abscess. Narrative Course Patient is medically stable at time of exam. Rapid strep test is negative. Patient treated with amoxicillin 875 twice a day 10 days. Patient also given Flonase nasal spray 2 sprays each nostril daily. Patient is to use Tylenol or ibuprofen as needed for sore throat. Patient follow up if symptoms do not improve in the next week. Diagnosis Primary Impression: Sinusitis, acute Qualified Codes: J01.40 - Acute pansinusitis, unspecified Referrals: Primary Care Physician Patient Instructions: General Instructions Additional Instructions: Rapid strep test is negative. Patient treated with amoxicillin 875 twice a day 10 days. Patient also given Flonase nasal spray 2 sprays each nostril daily. Patient is to use Tylenol or ibuprofen as needed for sore throat. Patient follow up if symptoms do not improve in the next week. Med/Other Pt SpecificInfo: Prescription(s) given Scripts Fluticasone Nasal Ruby (Flonase Nasal Ruby) 50 Mcg/Act Ruby 100 MCG EACH NARE BID for Allergies, #1 BOTTLE 0 Refills Prov: Dari Goel DO 11/25/16 Amoxicillin (Amoxicillin) 875 Mg Tab 875 MG PO BID for Infection for 10 Days, TAB 0 Refills Prov: Dari Goel DO 11/25/16 Disposition: 01 DISCHARGE HOME Condition: Stable Jesus Rosa Nov 25, 2016 13:01
[2016-11-25] MEDS ORDERED: AMOX875T PO (13:17)
[2016-11-25] MEDS ORDERED: FLUT1SPR5 EACH NARE (13:17)
== END 2016-11-25 13:37 | disposition home or self-care (01) ==
LOC: NEPK 11:50
DX: J01.90 Acute sinusitis, unspecified (principal); R51 Headache; H92.02 Otalgia, left ear; R05 Cough; I10 Essential (primary) hypertension; F43.10 Post-traumatic stress disorder, unspecified; F32.9 Major depressive disorder, single episode, unspecified; Z86.73 Personal history of transient ischemic attack (TIA), and cerebral infarction without residual deficits; Z79.899 Other long term (current) drug therapy
CPT/HCPCS: 87081; 87880; 99283

== ENCOUNTER 2017-08-19 18:57 | Emergency (ER) | payer OTHER ==
[~2017-08-19] VITALS: Ht 177.8 cm; Wt 96.0 kg
[~2017-08-19 18:57] MED LIST changes: +AMOX875T PO; +FLUT1SPR5 EACH NARE; +METO1TAB9 PO; -METO50TA11 PO
[2017-08-19 19:01] VITALS: BP 158/93; PULSE 125; RESP 16; TEMP 99.8; O2SAT 97
--- NOTE | 2017-08-19 20:22 | PD ---
HPI Chief Complaint: General Weakness Time Seen by Provider: 20:09 Travel History International Travel<30 days: No Contact w/Intl Traveler<30days: No Traveled to known affect area: No History of Present Illness HPI Patient presents to the emergency department complaining of general body aches that started yesterday. States symptoms increase in severity today. His 2 daughters and have recently gotten over a stomach bug. He denies fever but reports chills, denies vomiting but reports nausea, he denies chest pain/ difficulty in breathing/abdominal pain/diarrhea/cough/headache/rash/rhinorrhea/ ear pain. Unsure about sore throat. PFSH Past Medical History Bipolar Disorder: Yes Anxiety: Yes Depression: Yes Cancer: No Cardiovascular Problems: Yes (HTN) High Cholesterol: Yes Chemotherapy: No Cerebrovascular Accident: Yes (HEMERAGIC) Diminished Hearing: No Endocrine: No Gastrointestinal Disorders: No Genitourinary: No Hypertension: Yes Immune Disorder: No Implanted Vascular Access Dvce: No Musculoskeletal: No Neurologic: Yes (TBI 2012) Psychiatric: Yes (ptsd) Reproductive: No Respiratory: No Immunizations Current: Yes Radiation Therapy: No Schizophrenia: Yes Tetanus Vaccination: < 5 Years Influenza Vaccination: No Past Surgical History Abdominal Surgery: Yes (HERNIA) Pacemaker: No Other Surgery: Yes (RT INGUINAL HERNIA REPAIR,) Social History Alcohol Use: Yes (SOCIAL) Tobacco Use: No (QUIT 2006) Substance Use: No Allergies-Medications (Allergen,Severity, Reaction): Coded Allergies: No Known Allergies (Verified Adverse Reaction, Unknown, 08/19/17) Reported Meds & Prescriptions Reported Meds & Active Scripts Active Flonase Nasal Hazel (Fluticasone Nasal Hazel) 50 Mcg/Act Hazel 100 Mcg EACH NARE BID Amoxicillin 875 Mg Tab 875 Mg PO BID 10 Days Reported Furosemide 40 Mg Tab 40 Mg PO DAILY Seroquel (Quetiapine Fumarate) 400 Mg Tab 400 Mg PO HS Flomax (Tamsulosin HCl) 0.4 Mg Cap 0.4 Mg PO HS Potassium Chloride ER (Potassium Chloride) 20 Meq Tab 40 Meq PO DAILY Wellbutrin SR 12 HR (Bupropion HCl) 150 Mg Tab 150 Mg PO Q12HR Metoprolol Succinate ER 24 HR (Metoprolol Succinate) 50 Mg Tab 50 Mg PO BID Review of Systems Except as stated in HPI: all other systems reviewed are Neg Physical Exam Narrative GENERAL: No acute distress. SKIN: Focused skin assessment warm/dry. HEAD: Atraumatic. Normocephalic. EYES: Pupils equal and round. No scleral icterus. No injection or drainage. ENT: No nasal bleeding or discharge. Mucous membranes pink and moist. No exudate. NECK: Trachea midline. No JVD. CARDIOVASCULAR: Regular rate and rhythm. No murmur appreciated. RESPIRATORY: No accessory muscle use. Clear to auscultation. Breath sounds equal bilaterally. GASTROINTESTINAL: Abdomen soft, non-tender, nondistended. Hepatic and splenic margins not palpable. MUSCULOSKELETAL: No obvious deformities. No clubbing. No cyanosis. No edema. NEUROLOGICAL: Awake and alert. No obvious cranial nerve deficits. Motor grossly within normal limits. Normal speech. PSYCHIATRIC: Appropriate mood and affect; insight and judgment normal. Data Data Last Documented VS Vital Signs Date Time Temp Pulse Resp B/P (MAP) Pulse Ox O2 Delivery O2 Flow Rate FiO2 08/19/17 22:53 16 08/19/17 20:06 Room Air 08/19/17 19:01 99.8 125 158/93 (114) 97 Orders Orders Complete Blood Count With Diff (08/19/17 20:18) Comprehensive Metabolic Panel (08/19/17 20:18) Creatine Kinase (Cpk) (08/19/17 20:18) Influenzae A/B Antigen (08/19/17 20:18) Sodium Chlor 0.9% 1000 Ml Inj (Ns 1000 M (08/19/17 20:30) Ketorolac Inj (Toradol Inj) (08/19/17 20:30) Ondansetron Odt (Zofran Odt) (08/19/17 21:15) Potassium, Serum (K) (08/19/17 22:50) Labs Laboratory Tests Test 08/19/17 21:30 08/19/17 22:57 White Blood Count 6.7 TH/MM3 Red Blood Count 5.26 MIL/MM3 Hemoglobin 15.4 GM/DL Hematocrit 44.3 % Mean Corpuscular Volume 84.2 FL Mean Corpuscular Hemoglobin 29.2 PG Mean Corpuscular Hemoglobin Concent 34.7 % Red Cell Distribution Width 13.0 % Platelet Count 189 TH/MM3 Mean Platelet Volume 8.8 FL Neutrophils (%) (Auto) 82.7 % Lymphocytes (%) (Auto) 7.6 % Monocytes (%) (Auto) 6.1 % Eosinophils (%) (Auto) 0.4 % Basophils (%) (Auto) 3.2 % Neutrophils # (Auto) 5.6 TH/MM3 Lymphocytes # (Auto) 0.5 TH/MM3 Monocytes # (Auto) 0.4 TH/MM3 Eosinophils # (Auto) 0.0 TH/MM3 Basophils # (Auto) 0.2 TH/MM3 CBC Comment DIFF FINAL Differential Comment Blood Urea Nitrogen 15 MG/DL Creatinine 0.89 MG/DL Random Glucose 77 MG/DL Total Protein 8.0 GM/DL Albumin 4.2 GM/DL Calcium Level 9.1 MG/DL Alkaline Phosphatase 47 U/L Aspartate Amino Transf (AST/SGOT) 33 U/L Alanine Aminotransferase (ALT/SGPT) 24 U/L Total Bilirubin 0.9 MG/DL Sodium Level 138 MEQ/L Potassium Level 5.2 MEQ/L 3.6 MEQ/L Chloride Level 102 MEQ/L Carbon Dioxide Level 28.7 MEQ/L Anion Gap 7 MEQ/L Estimat Glomerular Filtration Rate 98 ML/MIN Total Creatine Kinase 170 U/L [facility] Medical Decision Making Medical Screen Exam Complete: Yes Emergency Medical Condition: Yes Interpretation(s) Labs: Flu negative, CBC within normal limits, chemistry slight increase in potassium-will repeat. 2352: Repeat potassium within normal limits. Differential Diagnosis Flu, URI, viral illness or bacterial illness Narrative Course Patient presents to the emergency department complaining of generalized body aches since yesterday. His 2 daughters and have had a stomach bug recently. He is afebrile, slightly hypertensive at 158/93, tachycardic at 125, 80 vital signs stable and placed on security dispatcher, IV access obtained, and labs sent. Flu swab also done. Patient given 1 L IV normal saline and 15 mg IV Toradol. Patient also given 4 mg ODT Zofran and was able to tolerate p.o. in the emergency department afterwards. 2357: Patient looks better on exam. Patient advises that he feels better and is eating fast food that his family brought him to the emergency department. He will be discharged with PCP follow-up. Diagnosis Primary Impression: Viral illness Patient Instructions: General Instructions Additional Instructions: 1. Follow-up with primary care doctor in 24-48 hours. 2. [id number] pain medication as needed. 3. Increase fluid intake. 4. Return to the emergency department for fever, vomiting, abdominal pain, chest pain, shortness of breath, or for any new/worrisome/worsening symptoms. Disposition: 01 DISCHARGE HOME Condition: Stable Sue Dukes MD August 19, 2017 20:22
[2017-08-19] MEDS ORDERED: SODIUM CHLOR 0.9% 1000 ML INJ 1,000 ML IV ONE (20:30)
[2017-08-19] MEDS ORDERED: KETOROLAC TROMETHAMINE 30 MG/ML (IVP) VIAL IV PUSH ONE (20:30)
[2017-08-19] MEDS ORDERED: ONDANSETRON ODT 4 MG TAB PO ONE (21:15)
[2017-08-19 21:45] VITALS: BP 126/68; PULSE 79; RESP 16; O2SAT 99
[2017-08-19 21:53] LABS: AUTOMATED NEUTROPHIL # 5.6 TH/MM3 (1.8-7.7); BASOPHIL # 0.2 TH/MM3 (0-0.2); BASOPHIL % 3.2 % (0.0-2.0); EOSINOPHIL % 0.4 % (0.0-4.0); HEMATOCRIT 44.3 % (39.0-51.0); HEMOGLOBIN 15.4 GM/DL (13.0-17.0); LYMPH % 7.6 % (9.0-44.0); LYMPHOCYTE # 0.5 TH/MM3 (1.0-4.8); MEAN CELL VOLUME 84.2 FL (80.0-100.0); MEAN CORPUSCULAR HEMOGLOBIN 29.2 PG (27.0-34.0); MEAN CORPUSCULAR HGB CONC 34.7 % (32.0-36.0); MEAN PLATELET VOLUME 8.8 FL (7.0-11.0); MONO % 6.1 % (0.0-8.0); MONOCYTE # 0.4 TH/MM3 (0-0.9); NEUT % 82.7 % (16.0-70.0); PLATELET COUNT 189 TH/MM3 (150-450); RED BLOOD COUNT 5.26 MIL/MM3 (4.50-5.90); WHITE BLOOD COUNT 6.7 TH/MM3 (4.0-11.0)
[2017-08-19 22:07] LABS: CHLORIDE 102 MEQ/L (98-107); SODIUM (NA) 138 MEQ/L (136-145)
[2017-08-19 22:11] LABS: ALBUMIN 4.2 GM/DL (3.4-5.0); CALCIUM 9.1 MG/DL (8.5-10.1); GLUCOSE,RANDOM 77 MG/DL (74-106)
[2017-08-19 22:12] LABS: BICARBONATE 28.7 MEQ/L (21.0-32.0); BLOOD UREA NITROGEN 15 MG/DL (7-18)
[2017-08-19 22:15] LABS: ALT (GPT) 24 U/L (12-78); AST (GOT) 33 U/L (15-37); CREATININE 0.89 MG/DL (0.60-1.30); GLOMERULAR FILTRATION RATE 98 ML/MIN (>89)
[2017-08-19 22:16] LABS: TOTAL BILIRUBIN ADULT 0.9 MG/DL (0.2-1.0)
[2017-08-19 22:18] LABS: ALKALINE PHOSPHATASE 47 U/L (45-117)
[2017-08-19 22:50] VITALS: BP 108/58; PULSE 76; RESP 16; O2SAT 99
[2017-08-19 22:53] VITALS: RESP 16
[2017-08-20 00:24] VITALS: BP 124/72
== END 2017-08-20 00:28 | disposition home or self-care (01) ==
LOC: PHED 18:57
DX: B34.9 Viral infection, unspecified (principal); F31.9 Bipolar disorder, unspecified; F41.9 Anxiety disorder, unspecified; F20.9 Schizophrenia, unspecified; F43.10 Post-traumatic stress disorder, unspecified; I10 Essential (primary) hypertension; E78.00 Pure hypercholesterolemia, unspecified; Z86.73 Personal history of transient ischemic attack (TIA), and cerebral infarction without residual deficits; Z87.891 Personal history of nicotine dependence
CPT/HCPCS: 80053; 82550; 84132; 85025; 87804; 96361; 96374; 99284; J1885; J7030